=== PATIENT | male | born 1960 | race Caucasian/White ===

== ENCOUNTER 2016-08-19 19:55 | Emergency (ER) | payer OTHER ==
[2016-08-19] MEDS ORDERED: TETANUS/DIPHTHERIA/PERTUSSIS 0.5 ML SYRINGE IM ONE ×2 (20:50→21:00)
[2016-08-19] MEDS ORDERED: CEPHALEXIN 250 MG Prepack 8 PO STA (20:50)
[2016-08-19] MEDS ORDERED: BUFFERED LIDOCAINE 10 ML SYRINGE ONE (20:50)
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
[2016-08-19] MEDS ORDERED: CEPHALEXIN 250 MG Prepack 8 PO ONE (21:00)
--- NOTE | 2016-08-19 21:11 | XRAY Preliminary Report ---
Exam: XR Finger(s) LT IMPRESSION: 1. Vertical lucency seen at the left fifth distal tuft radial aspect. Subtle horizontal lucency acros s the left fifth distal phalanx distal diaphysis. These could represent a nondisplaced acute fracture s. Correlate clinically. 2. Small density at the ulnar volar aspect soft tissue at the left distal phalanx, could represent a small hematoma, measures 5 mm. No radiopaque foreign body. [facility] SITE ID: [id number]
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
[2016-08-19] MEDS ORDERED: HYDROcod/ACET 5/325 Prepack 6 PO STA (21:37)
[2016-08-19] MEDS ORDERED: HYDROcod/ACET 5/325 Prepack 6 PO ONE (21:38)
[2016-08-19 21:45] VITALS: BP 154/81
== END 2016-08-19 21:49 | disposition home or self-care (01) ==
LOC: ED 19:55
DX: S62.636B Displaced fracture of distal phalanx of right little finger, initial encounter for open fracture (principal); W23.1XXA Caught, crushed, jammed, or pinched between stationary objects, initial encounter; Y92.015 Private garage of single-family (private) house as the place of occurrence of the external cause; Z23 Encounter for immunization; R03.0 Elevated blood-pressure reading, without diagnosis of hypertension; G47.30 Sleep apnea, unspecified; K21.9 Gastro-esophageal reflux disease without esophagitis
CPT/HCPCS: 12001; 73140; 90471; 99283